=== PATIENT | female | born 1960 | race Asian ===

== ENCOUNTER 2018-05-19 07:37 | Inpatient (IN) | payer OTHER ==
[~2018-05-19] VITALS: Ht 149.9 cm; Wt 62.0 kg
[~2018-05-19 07:37] MED LIST: AMLO10TA8 PO; OXYB5TAB7 PO
[2018-05-19] MEDS ORDERED: MECLIZINE CHEWABLE 25 MG TAB PO ONE (08:30)
[2018-05-19] MEDS ORDERED: SODIUM CHLORIDE 0.9% 1,000ML IVBOLUS ONE (08:30)
[2018-05-19] MEDS ORDERED: SODIUM CHLORIDE FLUSH 10ML SYR IVF ONE ×2 (08:30→10:30)
--- NOTE | 2018-05-19 08:47 | NUR ---
POC RV'WD WITH PT. PT MEDICATED PER ORDERS. IV BOLUS INFUSING. FAMILY AT BS.
[2018-05-19] MEDS ORDERED: MECLIZINE CHEWABLE 25 MG TAB ONE (08:50)
[2018-05-19 08:55] LABS: BASOPHILS # (AUTO) 0.02 x10^3/uL (0-0.1); BASOPHILS % (AUTO) 0 % (0-1); EOSINOPHILS # (AUTO) 0.04 x10^3/uL (0-0.4); EOSINOPHILS % (AUTO) 1 % (1-7); LYMPHOCYTES # (AUTO) 1.54 x10^3/uL (1-3.4); LYMPHOCYTES % (AUTO) 19 % (22-44); MD NO; MEAN CORPUSCULAR HEMOGLOBIN 29.5 pg (27.0-34.8); MEAN CORPUSCULAR HGB CONC 33.8 g/dL (32.4-35.8); MEAN CORPUSCULAR VOLUME 87.5 fL (80-100); MONOCYTES # (AUTO) 0.25 x10^3/uL (0.2-0.8); MONOCYTES % (AUTO) 3 % (2-9); NEUTROPHILS # (AUTO) 6.25 x10^3/uL (1.8-6.8); NEUTROPHILS % (AUTO) 77 % (42-75); PLATELET COUNT 351 x10^3/uL (130-400); RED BLOOD COUNT 5.31 x10^6/uL (3.82-5.3); RED CELL DISTRIBUTION WIDTH 12.9 % (9.6-15.2)
[2018-05-19 09:05] LABS: ANION GAP 10 mmol/L (5-15); CALCIUM 9.2 mg/dL (8.5-10.1); CHLORIDE 108 mmol/L (98-107)
[2018-05-19] MEDS ORDERED: MORPHINE SULFATE 4 MG/ML, 1ML IVPush STA (10:05)
[2018-05-19] MEDS ORDERED: MORPHINE SULFATE 4 MG/ML, 1ML ONE (10:11)
[2018-05-19] MEDS ORDERED: ONDANSETRON 2MG/ML, 2ML ONE (10:11)
[2018-05-19] MEDS ORDERED: ONDANSETRON 2MG/ML, 2ML IVPush ONE (10:30)
--- NOTE | 2018-05-19 11:03 | NUR ---
US IV ATTEMPTS BY CAL IVLLALBA UNSUCCESSFUL. DR. MELVIN AT BEDSIDE. US 18G 4IN PIV PLACED LEFT BRACHIAL. CT NOTIFIED.
[2018-05-19] MEDS ORDERED: OMNIPAQUE 350 MG/ML, 100ML BOTTLE ONE (12:05)
--- NOTE | 2018-05-19 12:38 | NUR ---
BREAK RN: PT CURRENTLY RESTING ON GURDEE. NAD NOTED. SKIN WARM AND DRY. RESP EVEN AND EQAUL. PT REPORTS PAIN IS "MOSTLY GONE". PT AWARE WE ARE WAITING FOR IMAGING RESULTS/RECHECK. FAMILY AT BEDSIDE. PT ON CONT BP, CARDIAC AND O2 MONITORS. CALL LIGHT WITHIN REACH.
[2018-05-19] MEDS ORDERED: POTASSIUM CHLORIDE 20 MEQ, MAGNESIUM SULFATE 2 GM, THIAMINE 200 MG, MVI ADULT 10 ML, FO... IV SCH (13:45)
[2018-05-19] MEDS ORDERED: ONDANSETRON ODT 4 MG PO PRN (14:00)
[2018-05-19] MEDS ORDERED: ACETAMINOPHEN 325 MG TABLET PO PRN (14:00)
[2018-05-19 14:09] VITALS: BP 146/98
[2018-05-19] MEDS: AMOXICILLIN/CLAV 875-125MG TABLET PO SCH (14:30)
[2018-05-19 15:11] LABS: HCT (SEDRATE) 46.4 % (34.6-47.8)
[2018-05-19] MEDS: D5%-0.9% NACL 1,000 ML IV SCH (16:21)
[2018-05-19 17:05] LABS: HEMOGLOBIN A1C 6.3 % (4.2-6.3)
[2018-05-19 20:28] VITALS: BP 151/87
[2018-05-20 01:47] VITALS: BP 157/91
[2018-05-20] MEDS: AMOXICILLIN/CLAV 875-125MG TABLET PO SCH ×2 (03:09→15:13)
[2018-05-20 06:10] LABS: BASOPHILS # (AUTO) 0.04 x10^3/uL (0-0.1); BASOPHILS % (AUTO) 0 % (0-1); EOSINOPHILS # (AUTO) 0.15 x10^3/uL (0-0.4); EOSINOPHILS % (AUTO) 1 % (1-7); LYMPHOCYTES # (AUTO) 2.02 x10^3/uL (1-3.4); LYMPHOCYTES % (AUTO) 19 % (22-44); MD NO; MEAN CORPUSCULAR HEMOGLOBIN 30.9 pg (27.0-34.8); MEAN CORPUSCULAR HGB CONC 34.8 g/dL (32.4-35.8); MEAN CORPUSCULAR VOLUME 88.8 fL (80-100); MEAN PLATELET VOLUME 8.1 fL (7.4-10.4); MONOCYTES # (AUTO) 0.74 x10^3/uL (0.2-0.8); MONOCYTES % (AUTO) 7 % (2-9); NEUTROPHILS # (AUTO) 8.01 x10^3/uL (1.8-6.8); NEUTROPHILS % (AUTO) 73 % (42-75); PLATELET COUNT 328 x10^3/uL (130-400); RED BLOOD COUNT 4.53 x10^6/uL (3.82-5.3); RED CELL DISTRIBUTION WIDTH 12.9 % (9.6-15.2)
[2018-05-20 06:11] LABS: ALANINE AMINOTRANSFERASE 32 U/L (12-78); ALBUMIN 3.3 g/dL (3.4-5.0); ANION GAP 8 mmol/L (5-15); CALCIUM 8.7 mg/dL (8.5-10.1); CHLORIDE 112 mmol/L (98-107); CREATININE 0.53 mg/dL (0.55-1.02)
[2018-05-20 06:17] LABS: ALKALINE PHOSPHATASE 67 U/L (45-117); CHOL/HDL RATIO 3.4; CHOLESTEROL, TOTAL 188 mg/dL (140-239); HDL CHOL % 30 % (28-40); HDL CHOLESTEROL (DIRECT) 56 mg/dL (40-60); LDL CHOLESTEROL,CALCULATED 113 mg/dL (54-169); TRIGLYCERIDES 93 mg/dL (50-200); VLDL CHOLESTEROL 19 mg/dL (0-25)
[2018-05-20] MEDS ORDERED: ASPIRIN 325 MG TABLET EC PO ONE (06:30)
[2018-05-20 06:35] VITALS: BP 141/90
[2018-05-20] MEDS: D5%-0.9% NACL 1,000 ML IV SCH ×2 (06:36→21:38)
[2018-05-20 07:07] LABS: HEMOGLOBIN A1C 6.1 % (4.2-6.3)
[2018-05-20] MEDS ORDERED: POTASSIUM CHLORIDE 20 MEQ TAB.ER.PRT PO ONE (07:30)
[2018-05-20] MEDS: ENOXAPARIN 40 MG/0.4 ML SQ SCH (09:00)
[2018-05-20 13:07] VITALS: BP 163/105
[2018-05-20 18:39] VITALS: BP 162/104
[2018-05-20] MEDS ORDERED: ATORVASTATIN 40 MG TABLET PO SCH (21:00)
[2018-05-21 00:53] VITALS: BP 154/79
[2018-05-21] MEDS: AMOXICILLIN/CLAV 875-125MG TABLET PO SCH ×2 (02:54→14:56)
[2018-05-21 07:50] VITALS: BP 158/98
[2018-05-21] MEDS: ENOXAPARIN 40 MG/0.4 ML SQ SCH (08:58)
[2018-05-21] MEDS ORDERED: AMLODIPINE 5 MG TABLET PO SCH (09:00)
[2018-05-21] MEDS: D5%-0.9% NACL 1,000 ML IV SCH (10:19)
[2018-05-21] MEDS ORDERED: LORazepam 0.5MG TABLET PO ONE (11:00)
[2018-05-21 15:24] VITALS: BP 158/108
[2018-05-21 19:29] VITALS: BP 154/111
== END 2018-05-21 20:12 | disposition home or self-care (01) | DRG 81 ==
LOC: ED 09:40 → EDIP 12:48 → 4NOR 13:56
PROVIDERS: ADMIT Hospitalist; ATTEND Hospitalist
DX: G93.5 Compression of brain (principal); E87.6 Hypokalemia; I10 Essential (primary) hypertension; Z79.899 Other long term (current) drug therapy
CPT/HCPCS: 36415; 99285; J7042; 70450; 70496; 70498; 70551; 72141; 80048; 80053; 80061; 82040; 82607; 83036; 83735; 84443; 85025; 85651; 93005; 96361; 96374; 96375; G0378; J2405; Q9967; J7030

== ENCOUNTER → 2018-06-30 | Outpatient (CLI) | payer OTHER | END | disposition home or self-care (01) | LOC: CFH 14:25 | PROVIDERS: ATTEND Physician Assistant Surgical | DX: G93.5 Compression of brain (principal) | CPT/HCPCS: 70551 ==

== ENCOUNTER → 2019-03-03 | Outpatient (CLI) | payer OTHER ==
[~2019-03-03] MED LIST changes: +OXYB5TAB10 PO; -OXYB5TAB7 PO
== END | disposition home or self-care (01) ==
LOC: CFH 15:41
PROVIDERS: ATTEND Internal Medicine Cardiovascular Disease
DX: I10 Essential (primary) hypertension (principal); E78.5 Hyperlipidemia, unspecified; M79.621 Pain in right upper arm; R73.03 Prediabetes; R94.31 Abnormal electrocardiogram [ECG] [EKG]; Z82.49 Family history of ischemic heart disease and other diseases of the circulatory system; Z82.5 Family history of asthma and other chronic lower respiratory diseases
CPT/HCPCS: 71046

== ENCOUNTER → 2019-11-01 | Outpatient (CLI) | payer OTHER | END | disposition home or self-care (01) | LOC: CFH 07:43 | PROVIDERS: ATTEND Family Medicine | DX: N60.02 Solitary cyst of left breast (principal); N60.01 Solitary cyst of right breast; Z90.49 Acquired absence of other specified parts of digestive tract | CPT/HCPCS: 76642; 76700; 77066; G0279 ==

== ENCOUNTER → 2020-02-28 | Outpatient (CLI) | payer OTHER ==
[~2020-02-28] MED LIST changes: +AMLO-211 PO; -AMLO10TA8 PO
== END | disposition home or self-care (01) ==
LOC: RAD 11:54
PROVIDERS: ATTEND Internal Medicine Gastroenterology
DX: R94.5 Abnormal results of liver function studies (principal); R10.84 Generalized abdominal pain; R14.0 Abdominal distension (gaseous); Z86.010 Personal history of colon polyps
CPT/HCPCS: 74018

== ENCOUNTER → 2020-10-25 | Outpatient (CLI) | payer OTHER | END | disposition home or self-care (01) | LOC: CFH 10:31 | PROVIDERS: ATTEND Internal Medicine Cardiovascular Disease | DX: R07.9 Chest pain, unspecified (principal); R94.31 Abnormal electrocardiogram [ECG] [EKG]; I10 Essential (primary) hypertension; M79.621 Pain in right upper arm; R73.03 Prediabetes; E78.5 Hyperlipidemia, unspecified | CPT/HCPCS: 71046 ==

== ENCOUNTER → 2021-01-22 | Outpatient (CLI) | payer OTHER | END | disposition home or self-care (01) | LOC: CFH 07:37 | PROVIDERS: ATTEND Internal Medicine Cardiovascular Disease | DX: I35.8 Other nonrheumatic aortic valve disorders (principal); I10 Essential (primary) hypertension; R94.31 Abnormal electrocardiogram [ECG] [EKG]; E11.9 Type 2 diabetes mellitus without complications; E78.5 Hyperlipidemia, unspecified | CPT/HCPCS: 78452; 93017; 93306; 93356; A9502 ==